=== PATIENT | male | born 1950 | race Caucasian/White ===

== ENCOUNTER 2016-09-11 11:11 | Outpatient (CLI) | payer OTHER ==
[2016-09-11 11:48] LABS: BASOPHILS % 0.7 (0.0-1.5); MEAN CORPUSCULAR HEMOGLOBIN 33.2 pg (28.0-34.0); MEAN CORPUSCULAR VOLUME 98.8 fl (80.0-100.0); MONOCYTES % 5.5 % (0.0-11.0); NEUTROPHILS # 5.2 # k/uL (1.4-7.7)
[2016-09-11 12:11] LABS: eGFR (African) 44; eGFR (Non-African) 36
[2016-09-12 02:15] LABS: PROTEIN mg/dL 35 mg/dL
== END 2016-09-11 11:12 ==
LOC: LAB 11:11
PROVIDERS: ATTEND Internal Medicine Nephrology
DX: N18.9 Chronic kidney disease, unspecified (principal); E11.9 Type 2 diabetes mellitus without complications
CPT/HCPCS: 36415; 80053; 82570; 83970; 84156; 85025

== ENCOUNTER 2016-10-01 14:04 | Outpatient (CLI) | payer OTHER | END 2016-10-01 14:05 | LOC: NEPHRO 14:04 | PROVIDERS: ATTEND Internal Medicine Nephrology | DX: N17.9 Acute kidney failure, unspecified (principal); R06.09 Other forms of dyspnea | CPT/HCPCS: 99213 ==

== ENCOUNTER 2017-01-28 13:44 | Outpatient (CLI) | payer OTHER | END 2017-01-28 13:45 | LOC: NEPHRO 13:44 | PROVIDERS: ATTEND Internal Medicine Nephrology | DX: E11.22 Type 2 diabetes mellitus with diabetic chronic kidney disease (principal); N18.9 Chronic kidney disease, unspecified; N17.9 Acute kidney failure, unspecified; I25.10 Atherosclerotic heart disease of native coronary artery without angina pectoris | CPT/HCPCS: 99213 ==

== ENCOUNTER 2017-06-17 13:28 | Outpatient (CLI) | payer MEDICARE, OTHER | END 2017-06-17 13:30 | LOC: NEPHRO 13:28 | PROVIDERS: ATTEND Internal Medicine Nephrology | DX: I50.9 Heart failure, unspecified (principal); E11.9 Type 2 diabetes mellitus without complications; N17.9 Acute kidney failure, unspecified | CPT/HCPCS: G0463 ==

== ENCOUNTER 2018-08-07 10:39 | Outpatient (CLI) | payer OTHER, MEDICARE ==
[2018-08-07 11:17] LABS: eGFR (Non-African) 14
== END 2018-08-07 10:50 ==
LOC: LAB 10:39
PROVIDERS: ATTEND Internal Medicine Cardiovascular Disease
DX: E11.59 Type 2 diabetes mellitus with other circulatory complications (principal); I10 Essential (primary) hypertension
CPT/HCPCS: 36415; 80048

== ENCOUNTER 2019-04-17 14:00 | Emergency (ER) | payer OTHER, MEDICARE ==
--- NOTE | 2019-04-17 14:18 | ED Physician Documentation ---
Ankle Injury - HISTORIAN Historian: patient - HPI Chief Complaint: Ankle Injury Additional Information: 68 year old male presents with c/o of right ankle injury; slipped on the ice on concrete 3 days ago. Took flexeril last night with no relief. He states it hurts to bare weight; swelling noted. No injury above the ankle. Neurovasculars intact. Onset: days ago Where: home Severity: moderate r: fall, wearing shoes Associated Symptoms:: swelling Modifying Factors:: pain on movement - ROS CONST: no problems CVS/RESP: none NEURO: denies: head injury, dizziness GI/: denies: nausea, vomiting MS/SKIN/LYMPH: ankle swelling. denies: neck pain, back pain - PAST HX Past History: diabetes Type 2, other (HTN, CAD, thyroid disorder, CABG, stents, GOUT) Immunizations: UTD Allergies/Adverse Reactions: Allergies Allergy/AdvReac Type Severity Reaction Status Date / Time Sulfa (Sulfonamide Allergy Verified 04/17/19 14:19 Antibiotics) Home Medications: Ambulatory Orders Medication Instructions Recorded Allopurinol [Zyloprim] 300 mg PO DAILY 04/17/19 Alogliptin Benzoate [Alogliptin] 25 mg PO BID 04/17/19 Aspirin EC [Ecotrin] 81 mg PO DAILY 04/17/19 Clonidine HCl [Catapres] 0.2 mg PO DAILY 04/17/19 Clopidogrel Bisulfate [Clopidogrel] 75 mg PO DAILY 04/17/19 Furosemide [Lasix] 80 mg PO BID 04/17/19 Insulin Aspart [Novolog Flexpen] 15 units SUBCUT TID 04/17/19 Insulin Detemir [Levemir Flextouch] 30 units SUBCUT HS 04/17/19 Isosorbide Mononitrate [Imdur] 30 mg PO DAILY 04/17/19 Isosorbide Mononitrate [Imdur] 60 mg PO DAILY 04/17/19 Levothyroxine Sodium [Euthyrox] 100 mcg PO DAILY 04/17/19 Metoprolol Succinate [Toprol Xl] 50 mg PO DAILY 04/17/19 Rosuvastatin Calcium [Crestor] 10 mg PO DAILY 04/17/19 amLODIPine BESYLATE [Norvasc] 5 mg PO DAILY 04/17/19 glipiZIDE ER [Glucotrol XL] 5 mg PO DAILY 04/17/19 - SOCIAL HX Smoking History: non-smoker Alcohol Use: none Drug Use: none - FAMILY HX Family History: none - REVIEWED ASSESSMENTS Nursing Assessment Reviewed: Yes Vitals Reviewed: Yes ED Results Lab/Radiology - Radiology Radiology Impressions: ANKLE RIGHT HISTORY: FALL ON FRIDAY, PAIN ON LATERAL SIDE OF RT FOOT/ANKLE, UNABLE TO BEAR WEIGHT. FINDINGS: AP, lateral and oblique views of the right ankle demonstrates an oblique minimally displaced distal fibular fracture. Soft tissue swelling over the later al malleolus is seen. Calcaneal spurs at the plantar fascia and Achilles tendon attachments are noted. No other acute abnormality is seen and the tibiotalar joint is maintained. IMPRESSION: Distal fibular fracture. Electronically signed on Apr 17, 2019 2:43:04 PM GAME AGENT by: Benoit Jean Baptiste FOOT RIGHT HISTORY: FALL ON FRIDAY, PAIN ON LATERAL SIDE OF RT FOOT/ANKLE, UNABLE TO BEAR WEIGHT. FINDINGS: AP, lateral and oblique views of the right foot demonstrates calcaneal spurs at the plantar fascia and Achilles tendon attachments. Distal fibular fracture is again noted. Soft tissue swelling over the dorsum of the foot is seen. No evidence of fracture or other acute abnormality of the foot is otherwise identified. IMPRESSION: Calcaneal spurs and distal fibular fracture. No other foot abnormality seen. Electronically signed on Apr 17, 2019 2:45:20 PM GAME AGENT by: Benoit Jean Baptiste Ankle Injury Physical Exam - Physical Exam General Appearance: alert, mild distress Foot: right foot: soft tissue tenderness, swelling Ankle: right: limited range of motion, pain, soft tissue tenderness, swelling Gait: limited by pain Neuro: sensation nml, motor nml Vascular: no vascular compromise Tendons: tendon function nml Leg/Knee/Thigh: uninjured above ankle Skin: intact, warm Head/ENT: nml inspection Neck/Back: nml inspection Resp/CVS: breath sounds nml, heart sounds nml Discharge Clincal Impression: Fracture of distal end of right fibula Referrals: Silvia Coates FNP [Primary Care Provider] - 2 Days Additional Instructions: WEAR WALKING BOOT NO WEIGHT BEARING/ USE WALKER Alternate Tylenol and Ibuprofen as needed for discomfort Take [place] (Pain med) every 6 hrs as needed for breakthrough pain (may increase the risk for fall) Keep leg elevated, Ice, Rest Call [facility] Friday04/19/19 for follow up [phone] Comments: Spoke with patient about the importance of following up with ortho CARLA; states her "ankle doctor" is at [facility] Consulted with Dr. Gibbons; will put patient in walking boot; he has walker at home; not safe to use crutches; Script for [place] #20 every 6 hours prn breakthrough pain. Condition: Good Disposition: 01 HOME, SELF-CARE Decision to Admit: NO Decision Time: 15:18
[2019-04-17 14:41] VITALS: BP 130/63
--- NOTE | 2019-04-19 11:01 | Diagnostic Imaging Report ---
[facility] [address] [facility] [address] Patient Name: ARRON GARCÍA Referring Physician: ANDREAS SANCHEZ Date of : 11/15/1943 Gender: F Date of Service: 04/16/2019 Exam Requested: CT BRAIN W/O CONTRAST HISTORY: 75-year-old female with right hand cramping, malaise, history of stroke. COMPARISON: Unfortunately, CT scan of the head dated 09/25/2018 was not made available for viewing on the PACS system. TECHNIQUE: Noncontrast axial CT images of the head were performed. Sagittal and coronal reformatted images were obtained. FINDINGS: There is moderate to severe decreased attenuation in the periventricular and bicerebral white matter. There are old lacunar infarcts in the left basal ganglia and right frontal periventricular white matter. There are thick dural calcifications along the falx. No intracranial hemorrhage, mass, midline shift, hydrocephalus, or evidence of acute large vessel infarct. The mastoid air cells, middle ear spaces, and paranasal sinuses are clear. No cranial fracture or scalp edema. The patient is completely edentulous IMPRESSION: Chronic ischemic changes without evidence of acute infarct, intracranial hemorrhage, or other acute intracranial process. EEN
--- NOTE | 2019-04-19 11:10 | Diagnostic Imaging Report ---
[facility] [address] [facility] [address] Patient Name: JACQUELINE PLAZA Referring Physician: LORENA WESLEY Date of : 1950 Gender: M Date of Service: 04/17/2019 Exam Requested: FOOT 3 VIEWS OR MORE FOOT RIGHT HISTORY: FALL ON FRIDAY, PAIN ON LATERAL SIDE OF RT FOOT/ANKLE, UNABLE TO BEAR WEIGHT. FINDINGS: AP, lateral and oblique views of the right foot demonstrates calcaneal spurs at the plantar fascia and Achilles tendon attachments. Distal fibular fracture is again noted. Soft tissue swelling over the dorsum of the foot is seen. No evidence of fracture or other acute abnormality of the foot is otherwise identified. IMPRESSION: Calcaneal spurs and distal fibular fracture. No other foot abnormality seen. EEN
--- NOTE | 2019-04-19 11:11 | Diagnostic Imaging Report ---
[facility] [address] [address] [facility] [address] Referring Physician: LORENA WESLEY Date of : 1950 Gender: M Date of Service: 04/17/2019 Exam Requested: ANKLE 3 VIEWS OR MORE ANKLE RIGHT HISTORY: FALL ON FRIDAY, PAIN ON LATERAL SIDE OF RT FOOT/ANKLE, UNABLE TO BEAR WEIGHT. FINDINGS: AP, lateral and oblique views of the right ankle demonstrates an oblique minimally displaced distal fibular fracture. Soft tissue swelling over the lateral malleolus is seen. Calcaneal spurs at the plantar fascia and Achilles tendon attachments are noted. No other acute abnormality is seen and the tibiotalar joint is maintained. IMPRESSION: Distal fibular fracture. EEN
== END 2019-04-17 15:28 | disposition home or self-care (01) ==
LOC: ED 14:00
DX: S82.831A Other fracture of upper and lower end of right fibula, initial encounter for closed fracture (principal); W00.0XXA Fall on same level due to ice and snow, initial encounter
CPT/HCPCS: 73610; 73630; 99282; 99284